=== PATIENT | female | born 1945 | race Caucasian/White ===

== ENCOUNTER 2021-04-16 06:25 | Emergency (ER) | payer MEDICARE, OTHER ==
[2021-04-16] MEDS ORDERED: EC-NAPROSYN375 MG PO (07:56)
[2021-05-10] MEDS ORDERED: NORCO 5-325 TA1 EACH PO (15:46)
[2021-05-11] MEDS ORDERED: NORVASC2.5 MG PO (13:56)
[2021-05-15] MEDS ORDERED: PERCOCET 5-3251 EACH PO (07:17)
[2021-05-15] MEDS ORDERED: TUMS200 MG PO (13:41)
[2021-05-15] MEDS ORDERED: ASPIRIN EC81 MG PO (17:30)
== END 2021-04-16 08:00 | disposition home or self-care (01) ==
LOC: FER 06:25
DX: M19.071 Primary osteoarthritis, right ankle and foot (principal); I10 Essential (primary) hypertension
CPT/HCPCS: 73610

== ENCOUNTER → 2021-05-15 | Day surgery (SDC) | payer MEDICARE, OTHER ==
[~2021-05-15] VITALS: Ht 157.5 cm; Wt 71.2 kg
[~2021-05-15] MED LIST: ASPIRIN EC81 MG PO; EC-NAPROSYN375 MG PO; NORCO 5-325 TA1 EACH PO; NORVASC2.5 MG PO; PERCOCET 5-3251 EACH PO; TUMS200 MG PO
[2021-05-15 14:25] LABS: HGB 14.2 g/dl (12.5-16.0); MCH 30.4 pg (25.0-31.0); MCHC 31.6 g/dL (32.0-36.0); MCV 96.4 fL (78.0-100.0); MPV 11.3 fL (6.0-9.5); RBC 4.67 M/uL (4.20-5.40); RDW 14.3 % (11.5-14.0); WBC 13.3 K/uL (4.0-10.5)
[2021-05-15 14:30] LABS: ALBUMIN 3.3 g/dL (3.4-5.0); BILIRUBIN - TOTAL 1.2 mg/dL (0.2-1.0); BUN/CREAT RATIO (CALC) 13.8 RATIO; CREATININE 0.65 mg/dL (0.51-0.95); GLOBULIN (CALCULATION) 3.6 g/dL; POTASSIUM 4.3 mmol/L (3.5-5.1); TOTAL PROTEIN 6.9 g/dL (6.4-8.2)
== END | disposition home or self-care (01) ==
LOC: FAS 11:44
PROVIDERS: Orthopaedic Surgery
DX: S82.251A Displaced comminuted fracture of shaft of right tibia, initial encounter for closed fracture (principal); S82.452A Displaced comminuted fracture of shaft of left fibula, initial encounter for closed fracture; S82.301A Unspecified fracture of lower end of right tibia, initial encounter for closed fracture; S82.831A Other fracture of upper and lower end of right fibula, initial encounter for closed fracture; R94.31 Abnormal electrocardiogram [ECG] [EKG]; K21.9 Gastro-esophageal reflux disease without esophagitis; I10 Essential (primary) hypertension; X58.XXXA Exposure to other specified factors, initial encounter
CPT/HCPCS: 36415; 71045; 73600; 76000; 80053; 93005; C1713; J0690; J1100; J2250; J2405; J2704; J2795; J3010; J7120